=== PATIENT | male | born 1980 | race Hispanic/Latino ===

== ENCOUNTER → 2019-04-19 | Outpatient (CLI) | payer BC ==
[~2019-04-19] MED LIST: LEVOTHYROXINE75 MCG PO; TYLENOL # 31 EA PO; TYLENOL WITH C1 EACH PO; URIBEL CAPSULE1 EACH PO
--- NOTE | 2019-04-19 09:42 | Diagnostic Imaging Report ---
Testicular ultrasound History: Recent vasectomy, epididymitis, orchitis Comparison: None Findings: Both testicles demonstrate normal size and underlying echotexture. No testicular mass is appreciated. Expected arterial and venous waveforms are seen within both testicles. The right testicle measures 4.1 x 2.1 x 2.5 cm. The left testicle measures 3.9 x 1.9 x 2.4 cm. The right and left epididymis appear normal in size. No epididymal hypervascularity is seen. Trace bilateral hydroceles. There are small bilateral varicoceles. Impression: 1. No intratesticular abnormality. 2. Trace bilateral hydroceles. Small bilateral varicoceles. Signed by: Kiet Soriano MD on 04/19/2019 9:04 AM
== END ==
LOC: US 07:42
PROVIDERS: ATTEND Urology
DX: N45.3 Epididymo-orchitis (principal); Z98.52 Vasectomy status
CPT/HCPCS: 76870; 93976

== ENCOUNTER → 2020-10-25 | Outpatient (CLI) | payer OTHER | LOC: RAD 09:01 | PROVIDERS: ATTEND Urology | DX: N20.0 Calculus of kidney (principal) | CPT/HCPCS: 74018 ==

== ENCOUNTER → 2022-02-03 | Outpatient (CLI) | payer BC | LOC: RAD 15:24 | PROVIDERS: ATTEND Urology | DX: N20.0 Calculus of kidney (principal) | CPT/HCPCS: 74018 ==

== ENCOUNTER → 2023-03-16 | Outpatient (CLI) | payer BC | LOC: CT 09:18 | PROVIDERS: ATTEND Urology | DX: N20.0 Calculus of kidney (principal) | CPT/HCPCS: 74176 ==